=== PATIENT | male | born 1940 | race Caucasian/White ===

== ENCOUNTER → 2019-02-20 07:20 | Outpatient (CLI) | payer MEDICARE, OTHER, SELFPAY ==
[2019-02-20 14:23] LABS: Hemoglobin A1C 5.8 % (0.0-7.0)
[2019-02-20 14:25] LABS: Alanine Aminotransferase 27 U/L (12-78); Albumin Level 4.1 gm/dL (3.4-5.0); Albumin/Globulin Ratio 1.4 (1.1-1.8); Alkaline Phosphatase 163 U/L (46-116); Anion Gap 13.9 mEq/L (5-15); Aspartate Amino Transferase 29 U/L (15-37); Blood Urea Nitrogen 25 mg/dL (7-18); Calcium 8.9 mg/dL (8.5-10.1); Carbon Dioxide 28 mmol/L (21.0-32.0); Chloride 104 mmol/L (98-107); Chol/HDL Ratio 2.6 (1-3.5); Cholesterol 111 mg/dL (140-200); Creatinine,Serum 0.92 mg/dL (0.70-1.30); Estimated Glomerular Filt Rate 80 ml/min (>60); GFR (African American) 97 ML/MIN (>60); Glucose 109 mg/dL (74-106); HDL Cholesterol 43 mg/dL (27-67); LDL Cholesterol 54 mg/dL (0-130); Potassium 3.9 mmoL/L (3.5-5.1); Sodium 142 mmol/L (136-145); Total Protein,Serum 7.1 gm/dL (6.4-8.2); Triglycerides 70 mg/dL (30-200); VLDL Cholesterol 14 mg/dL (0-40)
== END ==
PROVIDERS: Visit Provider Internal Medicine Adolescent Medicine
DX: E11.9 Type 2 diabetes mellitus without complications (principal)
CPT/HCPCS: 36415; 80053; 80061; 83036

== ENCOUNTER 2019-07-18 16:00 | Outpatient (RCR) | payer MEDICARE, OTHER, SELFPAY ==
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
== END 2019-08-05 09:53 | disposition home or self-care (01) ==
LOC: PT.CARL 16:00
PROVIDERS: Visit Provider Internal Medicine Adolescent Medicine
DX: M25.511 Pain in right shoulder (principal)
CPT/HCPCS: 97014; 97033; 97035; 97110; 97140; 97163; G0283

== ENCOUNTER 2019-11-11 16:00 | Outpatient (RCR) | payer OTHER, SELFPAY | END 2019-11-11 16:30 | disposition home or self-care (01) | LOC: OT 16:00 | PROVIDERS: Visit Provider Orthopaedic Surgery | DX: M79.641 Pain in right hand (principal) | CPT/HCPCS: 97033; 97110; 97140; 97166 ==

== ENCOUNTER → 2020-02-11 08:08 | Outpatient (CLI) | payer MEDICARE, OTHER, SELFPAY ==
[2020-02-11 14:19] LABS: Alanine Aminotransferase 20 U/L (12-78); Albumin Level 4.4 g/dl (3.5-5.0); Albumin/Globulin Ratio 1.7 (1.1-1.8); Alkaline Phosphatase 158 U/L (38-126); Anion Gap 13.2 mEq/L (5-15); Aspartate Amino Transferase 33 U/L (17-59); Bilirubin,Total 0.8 mg/dl (0.2-1.3); Blood Urea Nitrogen 23 mg/dl (9-20); Calcium 9.7 mg/dl (8.4-10.2); Carbon Dioxide 28 mmol/L (22.0-30.0); Chloride 101 mmol/L (98-107); Chol/HDL Ratio 2.4 (1-3.5); Cholesterol 107 mg/dl (140-200); Estimated Glomerular Filt Rate 93 ml/min (>60); GFR (African American) 113 ML/MIN (>60); Globulin 2.6 g/dL (1.3-3.2); Glucose 114 mg/dl (74-100); HDL Cholesterol 45 mg/dl (40-60); Potassium 4.2 mmoL/L (3.5-5.1); Sodium 138 mmol/L (136-145); Triglycerides 86 mg/dl (30-150); VLDL Cholesterol 17 mg/dL (0-40)
[2020-02-11 14:30] LABS: Direct LDL Cholesterol 47.18 mg/dL (100-129)
[2020-02-11 14:33] LABS: Hemoglobin A1C 5.9 % (4.0-6.0)
[2020-02-12 12:05] LABS: PSA, Free 0.24 ng/mL; Prostate Specific Ag 0.7 ng/mL (0.0-4.0)
== END ==
PROVIDERS: Visit Provider Nurse Practitioner Family
DX: Z00.00 Encounter for general adult medical examination without abnormal findings (principal); E11.9 Type 2 diabetes mellitus without complications; E78.2 Mixed hyperlipidemia
CPT/HCPCS: 36415; 80053; 80061; 83036; 84153; 84154

== ENCOUNTER 2020-03-27 17:48 | Emergency (ER) | payer OTHER, SELFPAY ==
[2020-03-27 18:03] VITALS: BP 156/80; PULSE 75; RESP 16; TEMP 36.8; O2SAT 98; BMI 29.2
--- NOTE | 2020-03-27 18:05 | XR_ITS ---
PROCEDURE: XR ANKLE RT MIN 3V CLINICAL INDICATION: injury Posttraumatic pain COMPARISON: XR FOOT RT MIN 3V from 03/27/2020 FINDINGS: There is mild soft tissue swelling at the medial malleolar region. There is minimal calcification at the tip of the lateral malleolus. This may be related to a small avulsion fracture. IMPRESSION: Nondisplaced avulsion fracture at the tip of the lateral malleolus Dictated by: Ori Bello MD 03/27/2020 20:48 Electronically signed by Ori Bello MD in [place] 03/27/2020 20:48
--- NOTE | 2020-03-27 18:05 | XR_ITS ---
PROCEDURE: XR FOOT RT MIN 3V CLINICAL INDICATION: injury Posttraumatic pain COMPARISON: No exams were available for comparison FINDINGS: There are mild osteoarthritic changes at the 1st metatarsophalangeal joint. There is some irregular calcification along the distal aspect of the 1st metatarsal medially and some calcification also along the lateral aspect of the 1st metatarsophalangeal joint. No obvious fracture or dislocation Other findings:None. IMPRESSION: Mild osteoarthritic change of the 1st MTP with periarticular calcification. No acute fracture Dictated by: Ori Bello MD 03/27/2020 20:46 Electronically signed by Ori Bello MD in [place] 03/27/2020 20:46
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
--- NOTE | 2020-03-27 18:19 | PC.NURSE ---
pt going over for x-rays
--- NOTE | 2020-03-27 18:29 | PC.NURSE ---
pt returned from rad
[2020-03-27 19:14] VITALS: BP 150/80; PULSE 72; RESP 16; TEMP 36.9; O2SAT 98
== END 2020-03-27 19:15 | disposition home or self-care (01) ==
PROVIDERS: Emergency Provider Nurse Practitioner Family; PCP Internal Medicine Adolescent Medicine
DX: S90.31XA Contusion of right foot, initial encounter (principal); L03.115 Cellulitis of right lower limb; W22.8XXA Striking against or struck by other objects, initial encounter; Y92.69 Other specified industrial and construction area as the place of occurrence of the external cause; Y99.0 Civilian activity done for income or pay
CPT/HCPCS: 73610; 73630; 99201

== ENCOUNTER → 2020-04-27 10:20 | Outpatient (CLI) | payer OTHER, SELFPAY ==
--- NOTE | 2020-04-27 10:25 | XR_ITS ---
PROCEDURE: XR ANKLE WT BEARING RT MIN 3V CLINICAL INDICATION: fracture follow up. COMPARISON: XR ANKLE RT MIN 3V from 03/27/2020 FINDINGS: Avulsion fracture once again noted involving the tip of the lateral malleolus. Small fracture fragment is unchanged. No new nominal ease are evident. IMPRESSION: No change avulsion tip of the lateral malleolus Dictated by: Ori Bello MD 04/27/2020 13:52 Electronically signed by Ori Bello MD in [place] 04/27/2020 13:52
== END ==
PROVIDERS: PCP Internal Medicine Adolescent Medicine; Visit Provider Podiatrist
DX: S82.61XD Displaced fracture of lateral malleolus of right fibula, subsequent encounter for closed fracture with routine healing (principal); T14.8XXA Other injury of unspecified body region, initial encounter
CPT/HCPCS: 73610

== ENCOUNTER → 2020-05-25 09:21 | Outpatient (CLI) | payer OTHER, SELFPAY ==
--- NOTE | 2020-05-25 09:23 | XR_ITS ---
PROCEDURE: XR ANKLE WT BEARING RT MIN 3V CLINICAL INDICATION: fracture follow-up Follow-up fracture COMPARISON: XR ANKLE RT MIN 3V from 03/27/2020 FINDINGS: The avulsed fracture fragment at the medial aspect of the tip the lateral malleolus is less apparent consistent with healing. Mild bony hypertrophy noted at the distal aspect of the tibia anteriorly and at the medial malleolar region. IMPRESSION: Healing avulsion fracture of the lateral malleolus Dictated by: Ori Bello MD 05/25/2020 14:44 Electronically signed by Ori Bello MD in [place] 05/25/2020 14:44
== END ==
PROVIDERS: PCP Internal Medicine Adolescent Medicine; Visit Provider Podiatrist
DX: T14.8XXA Other injury of unspecified body region, initial encounter (principal); S82.831D Other fracture of upper and lower end of right fibula, subsequent encounter for closed fracture with routine healing; S82.61XD Displaced fracture of lateral malleolus of right fibula, subsequent encounter for closed fracture with routine healing; M25.571 Pain in right ankle and joints of right foot
CPT/HCPCS: 73610

== ENCOUNTER → 2021-11-11 10:04 | Outpatient (CLI) | payer MEDICARE, OTHER, SELFPAY ==
--- NOTE | 2021-11-11 10:24 | XR_ITS ---
PROCEDURE: XR SACROILIAC JOINT BI MIN 3V CLINICAL INDICATION: LOW BACK PAIN COMPARISON: No exams were available for comparison FINDINGS: The SI joints have an unremarkable appearance. No effusion, osteosclerosis, or lytic process. No significant degenerative change. 0 2 there are mild osteoarthritic changes of the hips. The joint spaces are well-preserved. No significant degenerative/arthritic changes. No erosive changes evident. Other findings:None. IMPRESSION: Negative SI joints. Mild osteoarthritic changes of both hips. Dictated by: Ori Bello MD 11/11/2021 12:23 Ori Bello MD in [place] 11/11/2021 12:23
--- NOTE | 2021-11-11 10:24 | XR_ITS ---
PROCEDURE: XR LUMBAR SPINE MIN 4V CLINICAL INDICATION: LOW BACK PAIN COMPARISON: No exams were available for comparison FINDINGS: Normal alignment. There is multilevel lumbar spondylosis with degenerative disc disease from T12-S1. Anterior osteophytes are present from L1-L5. No obvious fracture or dislocation. No lytic or blastic change. Mild facet arthritic changes at L5-S1. Other findings:None. IMPRESSION: Multilevel degenerative changes of the lumbar spine as described above.. Dictated by: Ori Bello MD 11/11/2021 11:15 Ori Bello MD in [place] 11/11/2021 11:15
[2021-11-11 10:37] LABS: Basophils # 0.1 K/mm3 (0-0.2); Basophils % 0.9 % (0.1-2.0); Eosinophils # 0.1 K/mm3 (0.0-0.4); Hematocrit 42.8 % (42.0-52.0); Hemoglobin 13.9 g/dL (14.1-18.0); Lymphocytes # 1.5 K/mm3 (0.7-4.5); Lymphocytes % 29.1 % (10-50); Mean Corpuscular HGB Conc 32.5 g/dL (31.8-35.4); Mean Corpuscular Hemoglobin 32.1 pg (27.0-31.2); Mean Corpuscular Volume 98.7 fl (80-94); Mean Platelet Volume 7.8 fl (7.4-10.4); Monocytes # 0.4 K/mm3 (0.1-1.0); Monocytes % 6.7 % (1.7-9.3); Neutrophils # 3.3 K/mm3 (1.8-7.8); Neutrophils % 62.3 % (37.0-80.0); Platelet Count 171 K/mm3 (142-424); Red Blood Count 4.33 M/mm3 (4.60-6.20); Red Cell Distribution Width 13.3 % (11.5-17.5); White Blood Count 5.3 K/mm3 (4.8-10.8)
[2021-11-11 11:00] LABS: Chloride 99 mmol/L (98-107); Potassium 4.1 mmoL/L (3.5-5.1); Sodium 140 mmol/L (136-145)
[2021-11-11 11:02] LABS: Blood Urea Nitrogen 33 mg/dl (9-20); Estimated Glomerular Filt Rate 58 ml/min (>60); GFR (African American) 70 ML/MIN (>60)
[2021-11-11 11:03] LABS: Alanine Aminotransferase 20 U/L (12-78); Albumin Level 4.7 g/dl (3.5-5.0); Alkaline Phosphatase 133 U/L (38-126); Anion Gap 13.1 mEq/L (5-15); Aspartate Amino Transferase 32 U/L (17-59); Bilirubin,Total 0.8 mg/dl (0.2-1.3); Calcium 9.3 mg/dl (8.4-10.2); Carbon Dioxide 32 mmol/L (22.0-30.0); Cholesterol 105 mg/dl (140-200); Globulin 2.4 g/dL (1.3-3.2); Glucose 112 mg/dl (74-100); Total Protein,Serum 7.1 g/dl (6.3-8.2); Triglycerides 87 mg/dl (30-150); VLDL Cholesterol 17 mg/dL (0-40)
[2021-11-11 11:04] LABS: Chol/HDL Ratio 2.4 (1-3.5); HDL Cholesterol 44 mg/dl (40-60)
[2021-11-11 11:07] LABS: Hemoglobin A1C 5.8 % (4.0-6.0)
[2021-11-11 11:15] LABS: Direct LDL Cholesterol 41.58 mg/dL (100-129)
[2021-11-11 22:03] LABS: Prostate Specific Ag Screen 0.8 ng/ml (0.0-4.0)
== END ==
PROVIDERS: Visit Provider Internal Medicine Adolescent Medicine
DX: M54.50 Low back pain, unspecified (principal); E11.9 Type 2 diabetes mellitus without complications; Z79.84 Long term (current) use of oral hypoglycemic drugs; Z12.5 Encounter for screening for malignant neoplasm of prostate
CPT/HCPCS: 36415; 72110; 72202; 80053; 80061; 83036; 85025; G0103

== ENCOUNTER 2021-12-25 16:15 | Emergency (ER) | payer MEDICARE, OTHER, SELFPAY ==
--- NOTE | 2021-12-25 16:14 | ECG_ITS ---
APPROVED REPORT Exam: Resting ECG HR:64 bpm ECG Measurements Heart Rate 64 AXES RI 172 P 65 QRSd 96 QRS 48 QT 391 T 59 QTc 400 Conclusion SINUS RHYTHM NORMAL ECG UNCONFIRMED REPORT Electronically signed by : Rafa Lee MD 12/26/2021 08:48:42
[2021-12-25 16:16] VITALS: BP 180/86; PULSE 64; RESP 18; TEMP 36.5; O2SAT 97; BMI 25.8
--- NOTE | 2021-12-25 16:25 | XR_ITS ---
PROCEDURE INFORMATION: Exam: XR Chest Exam date and time: 12/25/2021 4:25 PM Age: 81 years old Clinical indication: Pain; Chest pressure; Additional info: Chest pain TECHNIQUE: Imaging protocol: XR of the chest. Views: 2 views. COMPARISON: No relevant prior studies available. FINDINGS: Lungs: Bilateral hyperinflation is present. Atelectatic changes noted within both lung bases. No focal pneumonia or pneumothorax. Pleural spaces: There are no pleural effusions present. Heart/Mediastinum: Unremarkable. No cardiomegaly. Bones/joints: The thoracic spine demonstrates mild degenerative changes at multiple levels. IMPRESSION: 1. Bilateral hyperinflation is present. 2. Atelectatic changes noted within both lung bases. 3. No focal pneumonia or pneumothorax.
[2021-12-25 16:30] VITALS: BP 157/77; PULSE 60; RESP 21; O2SAT 97
[2021-12-25 16:59] LABS: Basophils # 0.1 K/mm3 (0-0.2); Basophils % 0.9 % (0.1-2.0); Eosinophils # 0.1 K/mm3 (0.0-0.4); Eosinophils % 1.1 % (0.1-12.0); Hematocrit 42.4 % (42.0-52.0); Hemoglobin 13.3 g/dL (14.1-18.0); Lymphocytes # 1.5 K/mm3 (0.7-4.5); Lymphocytes % 25.3 % (10-50); Mean Corpuscular HGB Conc 31.5 g/dL (31.8-35.4); Mean Corpuscular Hemoglobin 30.7 pg (27.0-31.2); Mean Corpuscular Volume 97.7 fl (80-94); Mean Platelet Volume 7.7 fl (7.4-10.4); Monocytes # 0.3 K/mm3 (0.1-1.0); Monocytes % 4.4 % (1.7-9.3); Neutrophils # 4.2 K/mm3 (1.8-7.8); Neutrophils % 68.3 % (37.0-80.0); Platelet Count 188 K/mm3 (142-424); Red Blood Count 4.34 M/mm3 (4.60-6.20); Red Cell Distribution Width 13.3 % (11.5-17.5); White Blood Count 6.1 K/mm3 (4.8-10.8)
[2021-12-25 17:01] VITALS: BP 170/76; PULSE 60; RESP 22; O2SAT 98
[2021-12-25 17:03] LABS: Blood Urea Nitrogen 27 mg/dl (9-20); Calcium 9.7 mg/dl (8.4-10.2); Carbon Dioxide 30 mmol/L (22.0-30.0); Chloride 102 mmol/L (98-107); Creatinine Clearance Estimated 64 mL/min (50-200); Estimated Glomerular Filt Rate 81 ml/min (>60); GFR (African American) 98 ML/MIN (>60); Glucose 107 mg/dl (74-100); Sodium 140 mmol/L (136-145)
[2021-12-25 17:27] LABS: Troponin I < 0.01 ng/ml (0.00-0.034)
[2021-12-25 17:30] VITALS: BP 167/73; PULSE 60; RESP 21; O2SAT 97
--- NOTE | 2021-12-25 18:28 | HMH.EDGENADL ---
ED Disposition Clinical Impression: COPD exacerbation Disposition: Home, Self-Care Condition on Discharge: Good Prescriptions: Doxycycline Hyclate [Doxycycline Hyclate 100mg Tablet] 100 mg PO Q12 #14 tab Transmission Status: Pending to [facility] methylPREDNISolone [Medrol 4mg tab] 4 mg PO DIRECTED #21 tab Transmission Status: Pending to [facility] Referrals: Rafa Lee MD [Primary Care Provider] - - Critical Care Critical Care Time: No Attestation: On 12/25/21, the high probability of a clinically significant, sudden or life threatening deterioration of the following system(s) required my full and direct attention, intervention and personal management. The time I documented below is in addition to time spent performing reported procedures but includes the following listed in this critical care notation. Medical Decision Making - Medical Records Medical records reviewed: Yes: I reviewed the patient's medical records. - Chilo Inquiry Pt receiving controlled substance: No Vital Signs: 12/25/21 16:16 12/25/21 16:30 12/25/21 17:01 Temperature 97.7 F Temperature Source Oral Pulse Rate 60 60 Pulse Rate [Left Radial] 64 Respiratory Rate 18 21 22 Blood Pressure 157/77 H 170/76 H Blood Pressure [Right Arm] 180/86 H Blood Pressure Mean 127 107 Blood Pressure Mean [Right Arm] 117 Blood Pressure Source [Right Arm] Automatic Cuff Blood Pressure Position [Right Arm] Sitting 02 Sat by Pulse Oximetry 97 97 98 Oxygen Delivery Method Room Air 12/25/21 17:30 Temperature Temperature Source Pulse Rate 60 Pulse Rate [Left Radial] Respiratory Rate 21 Blood Pressure 167/73 H Blood Pressure [Right Arm] Blood Pressure Mean 104 Blood Pressure Mean [Right Arm] Blood Pressure Source [Right Arm] Blood Pressure Position [Right Arm] 02 Sat by Pulse Oximetry 97 Oxygen Delivery Method - Lab Data Lab Results 12/25/21 16:18: WBC 6.1, RBC 4.34 L, Hgb 13.3 L, Hct 42.4, MCV 97.7 H, MCH 30.7, MCHC 31.5 L, RDW 13.3, Plt Count 188, MPV 7.7, Neut % (Auto) 68.3, Lymph % (Auto) 25.3, [place] % (Auto) 4.4, Eos % (Auto) 1.1, Baso % (Auto) 0.9, Neut # (Auto) 4.2, Lymph # (Auto) 1.5, [place] # (Auto) 0.3, Eos # (Auto) 0.1, Baso # (Auto) 0.1 12/25/21 16:18: Sodium 140, Potassium 4.0, Chloride 102, Carbon Dioxide 30, Anion Gap 12.0, BUN 27 H, Creatinine 0.90, Estimated Creat Clear 64, Estimated GFR 81, Est GFR ( Amer) 98, Glucose 107 H, Calcium 9.7, Troponin I < 0.01 Result diagrams: 12/25/21 16:18 12/25/21 16:18 Orders (Tests/Meds): ORDERS Category Date Time Status Troponin I Q3H Lab 12/25/21 19:30 Ordered Troponin I Q3H Lab 12/25/21 22:30 Ordered Medical Decision Narrative: Patient is an 81-year-old male presents the ED today for further evaluation of shortness of breath. Patient with wheezes on examination, and prolonged expiratory phase consistent with a COPD exacerbation, this with increased sputum production. 10 CBC, CMP, chest x-ray, administer a nebulizer treatment and 125 mg of IV Solu-Medrol. Patient has felt great symptomatic improvement on reassessment, steroids at that time to be effective patient is no longer having wheezing on examination, I have sent patient a Medrol Dosepak to take at home, and due to increased beta production we will send him doxycycline 100 mg twice a day for the next 7 days, patient is well-appearing at the time of discharge, able to ambulate, no acute distress, given return precautions return to ED with new or worsening symptoms and is verbalized understanding with plan. I have discussed the case with Hugo who is part of the patient's primary care office, she will order him a new nebulizer machine and treatments at home, we have also decided after discussing the case we will start the patient on a Breo inhaler, as he likely needs additional steroid medication at home. Patient informed of this plan and will look out for these
--- NOTE | 2021-12-25 18:35 | HMH.EDGENADL ---
ED Disposition Clinical Impression: Chest pain Qualifiers: Chest pain type: unspecified Qualified Code(s): R07.9 - Chest pain, unspecified Disposition: Home, Self-Care Condition on Discharge: Good Prescriptions: Doxycycline Hyclate [Doxycycline Hyclate 100mg Tablet] 100 mg PO Q12 #14 tab Transmission Status: Received by [facility] methylPREDNISolone [Medrol 4mg tab] 4 mg PO DIRECTED #21 tab Transmission Status: Received by [id number] Referrals: Rafa Lee MD [Primary Care Provider] - - Critical Care Critical Care Time: No Attestation: On 12/25/21, the high probability of a clinically significant, sudden or life threatening deterioration of the following system(s) required my full and direct attention, intervention and personal management. The time I documented below is in addition to time spent performing reported procedures but includes the following listed in this critical care notation. Medical Decision Making - Medical Records Medical records reviewed: Yes: I reviewed the patient's medical records. - Chilo Inquiry Pt receiving controlled substance: No Vital Signs: 12/25/21 16:16 12/25/21 16:30 12/25/21 17:01 Temperature 97.7 F Temperature Source Oral Pulse Rate 60 60 Pulse Rate [Left Radial] 64 Respiratory Rate 18 21 22 Blood Pressure 157/77 H 170/76 H Blood Pressure [Right Arm] 180/86 H Blood Pressure Mean 127 107 Blood Pressure Mean [Right Arm] 117 Blood Pressure Source [Right Arm] Automatic Cuff Blood Pressure Position [Right Arm] Sitting 02 Sat by Pulse Oximetry 97 97 98 Oxygen Delivery Method Room Air 12/25/21 17:30 12/25/21 18:39 Temperature 98 F Temperature Source Oral Pulse Rate 60 87 Pulse Rate [Left Radial] Respiratory Rate 21 16 Blood Pressure 167/73 H 152/78 H Blood Pressure [Right Arm] Blood Pressure Mean 104 Blood Pressure Mean [Right Arm] Blood Pressure Source [Right Arm] Blood Pressure Position [Right Arm] 02 Sat by Pulse Oximetry 97 Oxygen Delivery Method Room Air - Lab Data Lab Results 12/25/21 16:18: WBC 6.1, RBC 4.34 L, Hgb 13.3 L, Hct 42.4, MCV 97.7 H, MCH 30.7, MCHC 31.5 L, RDW 13.3, Plt Count 188, MPV 7.7, Neut % (Auto) 68.3, Lymph % (Auto) 25.3, Delta % (Auto) 4.4, Eos % (Auto) 1.1, Baso % (Auto) 0.9, Neut # (Auto) 4.2, Lymph # (Auto) 1.5, [place] # (Auto) 0.3, Eos # (Auto) 0.1, Baso # (Auto) 0.1 12/25/21 16:18: Sodium 140, Potassium 4.0, Chloride 102, Carbon Dioxide 30, Anion Gap 12.0, BUN 27 H, Creatinine 0.90, Estimated Creat Clear 64, Estimated GFR 81, Est GFR ( Amer) 98, Glucose 107 H, Calcium 9.7, Troponin I < 0.01 Result diagrams: 12/25/21 16:18 12/25/21 16:18 Medical Decision Narrative: Pt is an 81 year old male who comes in today with chest pain, he is well appearing in no acute distress with stable vital signs, although is fairly hypertensive. We will further evaluate with a cardiac workup including CBC, CMP, troponin, CXR. His EKG visualized early with no evidence of cindi ischemia and we can obtain repeat if he worsens or his pain changes. He does not want any further pain medication for it right now. Will closely observe during workup. Initial trop undetectable, given that his pain has been going on for 8+ hours, nonworsening, and he is stable we wanted to obtain a repeat troponin and after discussion witht he patient he is comfortable going home. CBC/CMP with no actionable abnormalities, he can go home at this point and followup outpatient. Given strict return precautions to return to the ED with any new or worsening symptoms and has verbalized understanding with this plan. He is comfortable and well appearing at the time of DC. Prior chart entered today in error, this chart is the visit chart, no medications were sent home with pt. General Adult HPI - General Chief complaint: Chest Pain Stated complaint: chest pain Time Seen by Provider: 12/25/21 16:20 Mode of Arrival:
[2021-12-25 18:39] VITALS: BP 152/78; PULSE 87; RESP 16; TEMP 36.6; O2SAT 98
== END 2021-12-25 18:40 | disposition home or self-care (01) ==
PROVIDERS: Emergency Provider Student in an Organized Health Care Education/Training Program; PCP Internal Medicine Adolescent Medicine
DX: J44.1 Chronic obstructive pulmonary disease with (acute) exacerbation (principal); I10 Essential (primary) hypertension; E78.5 Hyperlipidemia, unspecified; E11.9 Type 2 diabetes mellitus without complications; F41.9 Anxiety disorder, unspecified; Z87.891 Personal history of nicotine dependence
CPT/HCPCS: 71046; 80048; 84484; 85025; 93005; 99283

== ENCOUNTER → 2022-05-05 19:32 | Outpatient (CLI) | payer MEDICARE, OTHER, SELFPAY ==
[2022-05-05 20:57] LABS: Albumin Level 4.5 g/dl (3.5-5.0); Albumin/Globulin Ratio 1.7 (1.1-1.8); Alkaline Phosphatase 128 U/L (38-126); Anion Gap 14.1 mEq/L (5-15); Bilirubin,Total 0.6 mg/dl (0.2-1.3); Blood Urea Nitrogen 31 mg/dl (9-20); Calcium 9.4 mg/dl (8.4-10.2); Carbon Dioxide 27 mmol/L (22.0-30.0); Chloride 101 mmol/L (98-107); Chol/HDL Ratio 2.6 (1-3.5); Cholesterol 118 mg/dl (140-200); Estimated Glomerular Filt Rate 64 ml/min (>60); GFR (African American) 78 ML/MIN (>60); Globulin 2.6 g/dL (1.3-3.2); Glucose 111 mg/dl (74-100); HDL Cholesterol 45 mg/dl (40-60); Potassium 4.1 mmoL/L (3.5-5.1); Sodium 138 mmol/L (136-145); Total Protein,Serum 7.1 g/dl (6.3-8.2); Triglycerides 100 mg/dl (30-150); VLDL Cholesterol 20 mg/dL (0-40)
[2022-05-05 20:58] LABS: Alanine Aminotransferase 24 U/L (12-78); Aspartate Amino Transferase 35 U/L (17-59)
[2022-05-05 21:08] LABS: Direct LDL Cholesterol 45.02 mg/dL (100-129)
[2022-05-05 21:11] LABS: Hemoglobin A1C 5.9 % (4.0-6.0)
== END ==
PROVIDERS: PCP Internal Medicine Adolescent Medicine; Visit Provider Internal Medicine Adolescent Medicine
DX: E11.9 Type 2 diabetes mellitus without complications (principal); Z79.84 Long term (current) use of oral hypoglycemic drugs
CPT/HCPCS: 80053; 80061; 83036

== ENCOUNTER 2024-09-15 11:16 | Emergency (ER) | payer MEDICARE, OTHER, SELFPAY ==
[2024-09-15 11:30] VITALS: BP 149/88; PULSE 59; RESP 20; TEMP 36.6; O2SAT 97; BMI 27.2
--- NOTE | 2024-09-15 11:46 | EXP.UTC ---
Discharge Plan Disposition Patient Disposition: Home, Self-Care Condition: Good Prescriptions Prescriptions: No Action tamsulosin 0.4 mg capsule 0.4 mg PO DAILY rosuvastatin 20 mg tablet 20 mg PO DAILY metformin 500 mg tablet 500 mg PO DAILY Qty: 90 3RF lisinopril 10 mg tablet 20 mg PO DAILY Patient Comments: TAKE 1 TABLET BY MOUTH ONCE DAILY bisoprolol-hydrochlorothiazide 5-6.25 mg tablet 1 tab PO DAILY Patient Comments: TAKE 1 TABLET BY MOUTH ONCE DAILY alprazolam 0.5 mg tablet 0.5 mg PO BID Referrals Follow up/Referrals: Rafa Lee MD [Primary Care Provider] - See instructions Activity Restrictions/Add. Instructions Additional Instructions/Restrictions: Clean area with antibacterial soap and water Follow up with your family doctor if any signs of infection You was given prophlactic dose of Doxycyline where the tick was removed and unsure how long it had been there Return if needed Straight to ER if any life threatening symptoms Clinical Impressions Clinical Impression: Tick bite Instructions Patient Instructions: How to Remove a Tick, Protect Yourself from Tickborne Illnesses Print Language Print Language: Syrian Discharge ED Provider: Jillian Bojorquez [facility] [place] General Stated complaint: Tick on left abdomin, pain in area Mode of Arrival: Ambulatory Source of Information: Patient Limitations: No Limitations Time Seen by Provider: 09/15/24 11:46 Description of Symptoms (Recalled from Triage Doc. by RN): PATIENT C/O TICK TO ABDOMEN THAT HE CAN'T GET OUT HEENT Symptoms (Recalled from RN notes): No Resp Symptoms (Recalled from RN notes): No Skin Symptoms (Recalled from RN notes): Yes MS Symptoms (Recalled from RN notes): No Functional Status (Recalled from RN notes): WNL History of Present Illness Provider Complaint: Patient states that he noticed he had a tick on his left side of abdomen unsure how long it had been there that he tried to get out this morning and thinks the head broke off States family members tried to get it out but couldnt States it is very red around bite area so he came in to get checked Related Data Home Medications ?Medication ?Instructions ?Recorded ?Confirmed rosuvastatin 20 mg tablet 20 mg PO DAILY 05/05/22 05/05/22 tamsulosin 0.4 mg capsule 0.4 mg PO DAILY 05/05/22 05/05/22 alprazolam 0.5 mg tablet 0.5 mg PO BID 05/06/22 bisoprolol 5 1 tab PO DAILY 05/06/22 mg-hydrochlorothiazide 6.25 mg tablet lisinopril 10 mg tablet 20 mg PO DAILY 05/06/22 Previous Rx's ?Medication ?Instructions ?Recorded metformin 500 mg tablet 500 mg PO DAILY #90 tabs 05/06/22 Allergies Allergy/AdvReac Type Severity Reaction Status Date / Time aspirin Allergy Unknown Verified 09/15/24 11:40 allergy reaction erythromycin base Allergy Unknown Verified 09/15/24 11:40 allergy reaction Worker's Comp Is this a Worker's Comp case?: No [facility] Disclaimer: The information contained in this section may have been updated after the patient was seen, as this information can be updated by other users. Social History Smoking Status: Former smoker tobacco type: smokeless tobacco alcohol intake: never substance use type: unknown current occupational status: employed Travel in the last 8 weeks: None housing: house ROS Obtained: Yes All systems reviewed & no additional complaints except as documented and Yes Systems reviewed as appropriate & no additional complaints except as documented Constitutional Constitutional: Reports system reviewed and no additional complaints, except as documented and Reports as per HPI ENT Ears, Nose, Mouth, and Throat: Reports system reviewed and no additional complaints, except as documented and Reports as per HPI Cardiovascular Cardiovascular: Reports system reviewed and no additional complaints, except as documented and Reports as per HPI Respiratory Respiratory: Reports system reviewed and no additional complaints, except as documented and Reports as per HPI Gastrointestinal Gastrointestingal: Reports system reviewed and no additional complaints, except as documented and as per HPI Integumentary/Breasts Skin/Breast: Reports system reviewed and no additional complaints, except as documented, Reports as per HPI and Reports other (tick stuck in skin on left abdomen) Physical Exam General General appearance: alert and in no apparent distress Respiratory Respiratory exam: Present normal lung sounds bilaterally; Absent respiratory distress or wheezes Cardiovascular Cardiovascular exam: Present regular rate, normal rhythm and normal heart sounds Neurological Exam Neurological exam: Present alert, oriented X3 and normal gait Skin Skin exam: Present other (tick part embedded in abdomen with surrounding redness noted to bite area) Medical Decision Making Medical Records Screening: Per USPSTF and CDC recommendations, given the prevalence of disease in our region, it is our hospital?s policy to screen for HIV and viral Hepatitis for all patients aged 18 and over and those with ongoing risk factors. Chilo Inquiry Pt receiving controlled substance: No Chilo was queried for this patient: No Vital Signs: 09/15/24 11:30 Temperature 97.8 F Temperature Source Oral Pulse Rate [Left Brachial] 59 L Respiratory Rate 20 Blood Pressure [Left Arm] 149/88 H Blood Pressure Mean [Left Arm] 108 Blood Pressure Source [Left Arm] Automatic Cuff Blood Pressure Position [Left Arm] Sitting 02 Sat by Pulse Oximetry 97 Oxygen Delivery Method Room Air Medical Decision Narrative: Noted small piece of tick remaining in bite area of abdomen, has surrounding redness, piece of remaining tick was removed easily with tweezers
[2024-09-15 12:09] VITALS: BP 149/88; PULSE 59; RESP 20; TEMP 36.6; O2SAT 97
[2024-09-15] MEDS: DOXYCYCLINE HYCL 100 MG TABLET 200 MG PO (12:11)
== END 2024-09-15 12:11 | disposition home or self-care (01) ==
PROVIDERS: Emergency Provider Nurse Practitioner; PCP Internal Medicine Adolescent Medicine
DX: S30.861A Insect bite (nonvenomous) of abdominal wall, initial encounter (principal); W57.XXXA Bitten or stung by nonvenomous insect and other nonvenomous arthropods, initial encounter
CPT/HCPCS: 99213; G0381

== ENCOUNTER 2025-01-28 20:42 | Emergency (ER) | payer MEDICARE, OTHER, SELFPAY ==
[2025-01-28 20:55] VITALS: BP 164/65; PULSE 60; RESP 18; TEMP 36.8; O2SAT 97; BMI 27.1
[2025-01-28 22:00] VITALS: BP 146/65; PULSE 60; O2SAT 100
--- NOTE | 2025-01-28 22:24 | CT_ITS ---
PROCEDURE INFORMATION: Exam: CT Maxillofacial Without Contrast Exam date and time: 01/28/2025 10:37 PM Age: 84 years old Clinical indication: Injury or trauma; Fall; Blunt trauma (contusions or hematomas); Other: Right eye; Additional info: Fall facial trauma TECHNIQUE: Imaging protocol: Computed tomography of the face without contrast. Radiation optimization: All CT scans at this facility use at least one of these dose optimization techniques: automated exposure control; mA and/or kV adjustment per patient size (includes targeted exams where dose is matched to clinical indication); or iterative reconstruction. COMPARISON: CT HEAD/BRAIN WO CON 01/28/2025 10:35 PM FINDINGS: Paranasal sinuses: Small amount of fluid in the right maxillary sinus. Sinuses are otherwise clear. Orbital cavities: Orbits are normal. Globes are unremarkable. Bones: No acute facial bone fracture or deformity. Moderate degenerative changes noted in the upper cervical spine. Soft tissues: Right periorbital soft tissue swelling. IMPRESSION: No acute fracture
--- NOTE | 2025-01-28 22:24 | CT_ITS ---
PROCEDURE INFORMATION: Exam: CT Head Without Contrast Exam date and time: 01/28/2025 10:35 PM Age: 84 years old Clinical indication: Injury or trauma; Fall; Blunt trauma (contusions or hematomas); Additional info: Fall, facial trauma TECHNIQUE: Imaging protocol: Computed tomography of the head without contrast. Radiation optimization: All CT scans at this facility use at least one of these dose optimization techniques: automated exposure control; mA and/or kV adjustment per patient size (includes targeted exams where dose is matched to clinical indication); or iterative reconstruction. COMPARISON: No relevant prior studies available. FINDINGS: Brain: Mild generalized cerebral atrophy. No intracranial mass, hemorrhage or evidence of acute ischemia. Cerebral ventricles: No ventriculomegaly. Cavum septum pellucidum et vergae. Paranasal sinuses: Visualized sinuses are unremarkable. No fluid levels. Mastoid air cells: Visualized mastoid air cells are well aerated. Bones: Unremarkable. No acute fracture. Soft tissues: Right periorbital soft tissue swelling noted. IMPRESSION: No acute intracranial abnormality
--- NOTE | 2025-01-28 22:24 | XR_ITS ---
PROCEDURE INFORMATION: Exam: XR Right Shoulder Exam date and time: 01/28/2025 10:41 PM Age: 84 years old Clinical indication: Injury or trauma; Fall; Blunt trauma (contusions or hematomas); Shoulder; Right TECHNIQUE: Imaging protocol: Radiologic exam of the right shoulder. Views: 2 or more views. COMPARISON: CT CERVICAL SPINE WO CON 01/28/2025 10:40 PM FINDINGS: Bones/joints: There are moderate degenerative changes at the AC joint with joint space narrowing, subchondral sclerosis and marginal spurring. Glenohumeral joint is fairly well preserved. There is no fracture, malalignment or underlying osseous lesion detected. Soft tissues: Normal. IMPRESSION: Moderate degenerative changes right AC joint. No acute bony abnormalities.
--- NOTE | 2025-01-28 22:26 | CT_ITS ---
PROCEDURE INFORMATION: Exam: CT Cervical Spine Without Contrast Exam date and time: 01/28/2025 10:40 PM Age: 84 years old Clinical indication: Injury or trauma; Fall; Blunt trauma TECHNIQUE: Imaging protocol: Computed tomography of the cervical spine without contrast. Radiation optimization: All CT scans at this facility use at least one of these dose optimization techniques: automated exposure control; mA and/or kV adjustment per patient size (includes targeted exams where dose is matched to clinical indication); or iterative reconstruction. COMPARISON: CT FACIAL BONES WO CON 01/28/2025 10:37 PM FINDINGS: Bones: Significant degenerative disc space narrowing with moderate disc bulge and uncovertebral spurring at the C5-C6 and C6-C7 disc levels. Moderate to severe multilevel predominantly left-sided facet arthropathy throughout the cervical spine. No acute fracture. Moderate degenerative changes noted in the atlantodental joint. Lungs: Lung apices are normal. Soft tissues: Unremarkable. IMPRESSION: No acute abnormality. Chronic findings as noted.
--- NOTE | 2025-01-28 22:27 | ED_ITS ---
Discharge Plan Disposition Patient Disposition: Home, Self-Care Condition: Good Prescriptions Prescriptions: No Action tamsulosin 0.4 mg capsule 0.4 mg PO DAILY rosuvastatin 20 mg tablet 20 mg PO DAILY metformin 500 mg tablet 500 mg PO DAILY Qty: 90 3RF lisinopril 10 mg tablet 20 mg PO DAILY Patient Comments: TAKE 1 TABLET BY MOUTH ONCE DAILY bisoprolol-hydrochlorothiazide 5-6.25 mg tablet 1 tab PO DAILY Patient Comments: TAKE 1 TABLET BY MOUTH ONCE DAILY alprazolam 0.5 mg tablet 0.5 mg PO BID Referrals Follow up/Referrals: Rafa Lee MD [Primary Care Provider] - See instructions Activity Restrictions/Add. Instructions Additional Instructions/Restrictions: You were evaluated in the ER and are appropriate for discharge at this time. Continue taking home medications as prescribed. Keep the wounds clean and dry. Shower/bathe as normal. Make an appointment with your primary care doctor for reevaluation in 2 to 3 days. Return to the ER with any new, worsening, or otherwise concerning symptoms. Clinical Impressions Clinical Impression: Fall, Abrasion of face Print Language Print Language: Turkmen Discharge ED Provider: Aly Schultz General Adult HPI <Aly Schultz MD - Last Filed: 01/28/25 23:20> General Chief complaint: Fall Stated complaint: Ao03/11@1998 fall facial inj,shoulder Time Seen by Provider: 01/28/25 22:15 Mode of Arrival: Ambulatory Source of Information: Patient Description of Symptoms (Recalled from ER Triage Doc. by RN): Pt states he fell approx 1 hour prior to arrival. pt states he fell in the [place] and struck his face on a rock. Pt has abrasions to his right face, right shoulder pain (no deformity), and pt injuried his right middle finger. pt did not have loc and is not on blood thinners History of Present Illness HPI narrative: Patient is 84-year-old male with no pertinent past medical history presents emergency department for evaluation of traumatic injury sustained in a fall. Patient was walking along a [place] when he had a ground-level fall forwards after tripping and striking his face on a rock. No LOC. Does not take anticoagulants. He has obvious trauma over his face and is complaining of right shoulder pain presents here for continued evaluation. No back pain, no chest or abdominal pain no other extremity pain. No other acute complaints at this time. Please note that above description of symptoms, in this electronic medical record under categorization of recalled from ER triage doctor by RN are reflective of an initial nursing assessment, however, is not reflective of my full history and physical exam that was personally taken and clarified. Consequentially, this preceding description of symptoms, which may include the patient's categorized chief complaint in the EMR, do not reflect my personal c linical impression, and the ultimate description of history of present illness and patient stated complaints should be deferred to this section of the note. Unless stated otherwise or congruent with this section of the note, additional signs, symptoms, or incongruence should be interpreted as inaccurate with my clinical impression. Related Data Home Medications ?Medication ?Instructions ?Recorded ?Confirmed rosuvastatin 20 mg tablet 20 mg PO DAILY 05/05/22 05/05/22 tamsulosin 0.4 mg capsule 0.4 mg PO DAILY 05/05/22 05/05/22 alprazolam 0.5 mg tablet 0.5 mg PO BID 05/06/22 bisoprolol 5 1 tab PO DAILY 05/06/22 mg-hydrochlorothiazide 6.25 mg tablet lisinopril 10 mg tablet 20 mg PO DAILY 05/06/22 Previous Rx's ?Medication ?Instructions ?Recorded metformin 500 mg tablet 500 mg PO DAILY #90 tabs 05/06/22 Allergies Allergy/AdvReac Type Severity Reaction Status Date / Time aspirin Allergy Unknown Verified 09/15/24 11:40 allergy reaction erythromycin base Allergy Unknown Verified 09/15/24 11:40 allergy reaction PFS <Aly Schultz MD - Last Filed: 01/28/25 23:20> [facility] Disclaimer: The information contained in this section may have been updated after the patient was seen, as this information can be updated by other users. Social History Smoking Status: Never smoker alcohol intake: never substance use type: unknown current occupational status: employed Travel in the last 8 weeks: None housing: house Have you lived/traveled outside US in past 30 days?: No Contact w/someone who lives/traveled outside US past 30 days?: No Exposure to someone with infectious disease in past 14 days?: No Do you have a fever (greater than 100.4 F or 38 C)?: No Have you tested positive for COVID-19: No Exposed to someone with COVID-19 in past 14 days?: No Do you have a sore throat?: No Do you have a cough?: No Do you have any weakness?: No Do you have any diarrhea?: No Are you experiencing any unusual bleeding?: No Do you have any muscle aches/pain?: No Do you have any abdominal pain?: No Are you experiencing loss of taste or smell?: No Other Medical History Have you received the Flu Vaccine for this season: No Have you received the Pneumonia Vaccine: Yes <Aly Schultz MD - Last Filed: 01/28/25 23:20> ROS Obtained: Yes Systems reviewed as appropriate & no additional complaints except as documented Physical Exam <Aly Schultz MD - Last Filed: 01/28/25 23:20> General General appearance: alert and in no apparent distress Head Head exam: normocephalic and other (Scattered facial abrasions and wounds over the right face) Eye Eye exam: Present PERRL ENT ENT exam: Present mucous membranes moist Neck Neck exam: Present normal inspection Chest Chest inspection: Present normal inspection and symmetric chest wall rise Respiratory Respiratory exam: Present normal lung sounds bilaterally; Absent respiratory d istress Cardiovascular Cardiovascular exam: Present regular rate and normal rhythm Abdominal Exam Abdominal exam: Present soft; Absent tenderness Extremities Exam Extremities exam: Present normal inspection Neurological Exam Neurological exam: Present alert and oriented X3 Psychiatric Psychiatric exam: Present normal affect Skin Skin exam: Present warm and dry Medical Decision Making <Aly Schultz MD - Last Filed: 01/28/25 23:20> Medical Records Screening: Per USPSTF and CDC recommendations, given the prevalence of disease in our region, it is our hospital?s policy to screen for HIV and viral Hepatitis for all patients aged 18 and over and those with ongoing risk factors. Chilo Inquiry Pt receiving controlled substance: No Vital Signs: 01/28/25 20:55 01/28/25 22:00 01/28/25 22:31 Temperature 98.3 F Temperature Source Temporal Artery Scan Pulse Rate 60 56 L Pulse Rate [Right] 60 Respiratory Rate 18 Blood Pressure 146/65 H 147/80 H Blood Pressure [Right Arm] 164/65 H Blood Pressure Mean Blood Pressure Mean [Right Arm] 98 Blood Pressure Source [Right Arm] Automatic Cuff Blood Pressure Position Blood Pressure Position [Right Arm] Sitting 02 Sat by Pulse Oximetry 97 100 98 Oxygen Delivery Method Room Air Room Air Room Air 01/28/25 23:00 01/28/25 23:05 01/28/25 23:30 Temperature Temperature Source Pulse Rate 55 L 58 L Pulse Rate [Right] Respiratory Rate Blood Pressure 159/65 H 164/65 H Blood Pressure [Right Arm] Blood Pressure Mean 95 Blood Pressure Mean [Right Arm] Blood Pressure Source [Right Arm] Blood Pressure Position Blood Pressure Position [Right Arm] 02 Sat by Pulse Oximetry 96 96 Oxygen Delivery Method Room Air Room Air 01/29/25 00:24 Temperature 98 F Temperature Source Oral Pulse Rate 74 Pulse Rate [Right] Respiratory Rate 14 Blood Pressure 158/89 H Blood Pressure [Right Arm] Blood Pressure Mean Blood Pressure Mean [Right Arm] Blood Pressure Source [Right Arm] Blood Pressure Position Sitting Blood Pressure Position [Right Arm] 02 Sat by Pulse Oximetry Oxygen Delivery Method Room Air Orders (Tests/Meds): ED MEDICATIONS Discontinued Medications Generic Name Dose Route Start Last Admin Trade Name Freq PRN Reason Stop Dose Admin Tetanus/Reduced Diphtheria/Acell Pertussis 0.5 ml 01/28/25 22:50 01/28/25 23:03 Tet/Diphth/Pert-Adult 0.5ml Syringe IM 01/28/25 22:51 0.5 ml .ONCE ONE Administration ORDERS Category Date Time Status CT cervical spine wo con Stat Cat Scan 01/28/25 22:[address] facial bones wo con Stat Cat Scan 01/28/25 22:[address] head/brain wo con Stat Cat Scan 01/28/25 22:24 Completed Shoulder XR right miminum 2 views [XR shoulder RT min Exams 01/28/25 22:24 Completed 2V] Stat Medical Decision Narrative: In summary patient is 84-year-old male past medical history described above presents emergency department for evaluation traumatic injury sustained in a fall. Patient is hemodynamically stable nontoxic-appearing upon arrival, afebrile. Based on history and physical exam trauma survey will be conducted with noncontrasted CT scan of the head, facial bones, cervical spine. Plain films shoulder will be obtained and Tdap will be updated. Imaging conducted and formal reads pending at time of transfer of care to the oncoming physician, Dr. Moreno. <Rose Moreno MD - Last Filed: 01/29/25 01:07> Medical Records Medical records reviewed: Yes I reviewed the patient's medical records. MR Comment: Review of previous records demonstrates patient was seen in [facility] in August 2024 for concerns of tick bite. Small piece of tick that remained in the skin was removed. He was not treated with any antibiotics. Vital Signs: 01/28/25 20:55 01/28/25 22:00 01/28/25 22:31 Temperature 98.3 F Temperature Source Temporal Artery Scan Pulse Rate 60 56 L Pulse Rate [Right] 60 Respiratory Rate 18 Blood Pressure 146/65 H 147/80 H Blood Pressure [Right Arm] 164/65 H Blood Pressure Mean Blood Pressure Mean [Right Arm] 98 Blood Pressure Source [Right Arm] Automatic Cuff Blood Pressure Position Blood Pressure Position [Right Arm] Sitting 02 Sat by Pulse Oximetry 97 100 98 Oxygen Delivery Method Room Air Room Air Room Air 01/28/25 23:00 01/28/25 23:05 01/28/25 23:30 Temperature Temperature Source Pulse Rate 55 L 58 L Pulse Rate [Right] Respiratory Rate Blood Pressure 159/65 H 164/65 H Blood Pressure [Right Arm] Blood Pressure Mean 95 Blood Pressure Mean [Right Arm] Blood Pressure Source [Right Arm] Blood Pressure Position Blood Pressure Position [Right Arm] 02 Sat by Pulse Oximetry 96 96 Oxygen Delivery Method Room Air Room Air 01/29/25 00:24 Temperature 98 F Temperature Source Oral Pulse Rate 74 Pulse Rate [Right] Respiratory Rate 14 Blood Pressure 158/89 H Blood Pressure [Right Arm] Blood Pressure Mean Blood Pressure Mean [Right Arm] Blood Pressure Source [Right Arm] Blood Pressure Position Sitting Blood Pressure Position [Right Arm] 02 Sat by Pulse Oximetry Oxygen Delivery Method Room Air Orders (Tests/Meds): ED MEDICATIONS Discontinued Medications Generic Name Dose Route Start Last Admin Trade Name Freq PRN Reason Stop Dose Admin Tetanus/Reduced Diphtheria/Acell Pertussis 0.5 ml 01/28/25 22:50 01/28/25 23:03 Tet/Diphth/Pert-Adult 0.5ml Syringe IM 01/28/25 22:51 0.5 ml .ONCE ONE Administration ORDERS Category Date Time Status CT cervical spine wo con Stat Cat Scan 01/28/25 22:[address] facial bones wo con Stat Cat Scan 01/28/25 22:[address] head/brain wo con Stat Cat Scan 01/28/25 22:24 Completed Shoulder XR right miminum 2 views [XR shoulder RT min Exams 01/28/25 22:24 Completed 2V] Stat Medical Decision Narrative: In summary patient is 84-year-old male past medical history described above presents emergency department for evaluation traumatic injury sustained in a fall. Patient is hemodynamically stable nontoxic-appearing upon arrival, afebrile. Based on history and physical exam trauma survey will be conducted with noncontrasted CT scan of the head, facial bones, cervical spine. Plain films shoulder will be obtained and Tdap will be updated. Imaging conducted and formal reads pending at time of transfer of care to the oncoming physician, Dr. Moreno. Josh: Upon my assumption of care patient is stable, resting comfortably. I agree with the assessment and plan from Dr. Schultz. CTs personally interpreted do not demonstrate acute traumatic injury within the brain, face, or C-spine, patient does have degenerative changes of the C-spine. See radiology reads for full interpretations. Shoulder x-ray personally interpreted demonstrates degenerative changes but no acute injury. See radiology read for full interpretation. On reevaluation patient continues to be stable and resting comfortably, with no pain, tenderness, or neurologic deficits. Tdap had been updated. I believe patient is appropriate for discharge at this time. Patient was given instructions on symptomatic management, follow up instructions, and return precautions for the emergency department. Patient indicated understanding and was discharged in stable condition. He ambulated independently from the ER. Critical Care <Aly Schultz MD - Last Filed: 01/28/25 23:20> Critical Care Time Critical Care Time: No
[2025-01-28 22:31] VITALS: BP 147/80; PULSE 56; O2SAT 98
--- NOTE | 2025-01-28 22:46 | PC.NURSE ---
Pt back from CT scan via wheelchair
[2025-01-28 23:00] VITALS: BP 159/65; PULSE 55; O2SAT 96
[2025-01-28] MEDS: TET/DIPHTH/PERT-ADULT 0.5ML SYRINGE 0.5 ML IM (23:03)
[2025-01-28 23:05] VITALS: PULSE 58; O2SAT 96
[2025-01-28 23:30] VITALS: BP 164/65
[2025-01-29 00:24] VITALS: BP 158/89; PULSE 74; RESP 14; TEMP 36.6; O2SAT 100
== END 2025-01-29 00:25 | disposition home or self-care (01) ==
PROVIDERS: Emergency Provider Emergency Medicine; PCP Internal Medicine Adolescent Medicine
DX: S00.81XA Abrasion of other part of head, initial encounter (principal); M25.511 Pain in right shoulder; M79.644 Pain in right finger(s); W01.198A Fall on same level from slipping, tripping and stumbling with subsequent striking against other object, initial encounter; Y93.89 Activity, other specified; Y92.89 Other specified places as the place of occurrence of the external cause; Z23 Encounter for immunization
CPT/HCPCS: 70450; 70486; 72125; 73030; 90471; 90715; 99284